=== PATIENT | female | born 1975 | race Caucasian/White ===

== ENCOUNTER → 2018-03-20 | Outpatient (REF) | payer OTHER ==
[2018-03-20 18:28] LABS: TOTAL PROTEIN,RANDOM URINE 23.4 MG/DL (0.0-12.0); URINE TOTAL PROTEIN 23.4 MG/DL (0-12)
[2018-03-20 18:36] LABS: TOTAL PROTEIN 6.8 GM/DL (6.4-8.2)
[2018-03-21 12:01] LABS: ALBUMIN 3.86 GM/DL (3.29-5.55); ALBUMIN % 56.7 % (55.8-66.1); ALPHA-1-GLOBULIN % 5.5 % (2.9-4.9); ALPHA-1-GLOBULINS 0.37 GM/DL (0.17-0.41); ALPHA-2-GLOBULINS 0.92 GM/DL (0.42-0.99); ALPHA-2-GLOBULINS % 13.6 % (7.1-11.8); BETA-1-GLOBULINS 0.47 GM/DL (0.28-0.60); BETA-1-GLOBULINS % 6.9 % (4.7-7.2); BETA-2-GLOBULINS 0.38 GM/DL (0.19-0.55); BETA-2-GLOBULINS % 5.6 % (3.2-6.5); GAMMA GLOBULIN % 11.7 % (11.1-18.8)
[2018-03-21 14:20] LABS: UPEP INTERPRETATION NO M-SPIKE NOTED; URINE VOLUME RANDOM ML
[2018-03-23 00:08] LABS: TISSUE TRANSGLUTAMINASE IgA <2 U/mL (0-3)
[2018-03-23 00:08] LABS: ENDOMYSIAL ABY IgA Negative (Negative); FREE LAMBDA LIGHT CHAINS SERUM 9.6 mg/L (5.7-26.3); KAPPA/LAMBDA RATIO SERUM 1.56 (0.26-1.65)
== END ==
LOC: M LAB REF 16:41
DX: D50.9 Iron deficiency anemia, unspecified (principal); D47.3 Essential (hemorrhagic) thrombocythemia
CPT/HCPCS: 84165

== ENCOUNTER 2018-06-21 11:17 | Day surgery (SDC) | payer OTHER ==
[2018-06-21] MEDS: NS 1,000 ML IV (13:02)
[2018-06-21] MEDS ORDERED: fentaNYL 100 MCG/2 ML INJECTION (J3010) As Ordered (13:44)
[2018-06-21] MEDS ORDERED: PROPOFOL 200 MG/20 ML VIAL As Ordered ×4 (14:03→14:38)
[2018-06-21] MEDS ORDERED: LIDOCAINE 2% INJ 100 MG/5 ML SDV (FOR ANES.) As Ordered (14:03)
== END 2018-06-21 15:25 | disposition home or self-care (01) ==
LOC: M OPP 11:17
DX: K64.8 Other hemorrhoids (principal); D12.2 Benign neoplasm of ascending colon; K31.7 Polyp of stomach and duodenum; K29.70 Gastritis, unspecified, without bleeding; K21.9 Gastro-esophageal reflux disease without esophagitis; M79.7 Fibromyalgia; F32.9 Major depressive disorder, single episode, unspecified; G43.909 Migraine, unspecified, not intractable, without status migrainosus; M47.9 Spondylosis, unspecified; Z79.899 Other long term (current) drug therapy; Z91.048 Other nonmedicinal substance allergy status; Z97.8 Presence of other specified devices
CPT/HCPCS: 45385

== ENCOUNTER 2019-10-17 06:42 | Day surgery (SDC) | payer OTHER ==
[~2019-10-17] VITALS: Ht 162.6 cm; Wt 91.2 kg
[~2019-10-17 06:42] MED LIST: AMIT10TA PO; BUPR150T3 PO; CALC600T7 PO; DEPO150I IM; DULO1CAP5 PO; DULO1CAP6 PO; FISH1000 PO; GABA600T4 PO; LORA-243 PO; OMEP1CAP73 PO; SUMA50TA2 PO; TIZA4CAP PO; VITA-122 PO; VITAD1000T PO; ZONI100C17 PO
[2019-10-17] MEDS ORDERED: SIMETHICONE 40MG/0.6ML DROPS 30ML As Ordered ONE (06:58)
[2019-10-17] MEDS ORDERED: LIDOCAINE 2% INJ 100 MG/5 ML SDV (FOR ANES.) As Ordered ONE (07:02)
[2019-10-17] MEDS ORDERED: propofoL 200 MG/20 ML VIAL As Ordered ONE ×2 (07:02→07:03)
--- NOTE | 2019-10-17 08:06 | ROOR ---
Patient Name: Gabi Moreno Procedure Date: 10/17/2019 7:31 AM Date of : 1975 Age: 44 Room: [facility], [facility]IN [facility] Gender: Female Note Status: Finalized Procedure: Colonoscopy Indications: High risk colon cancer surveillance: Personal history of sessile serrated colon polyp (10 mm or greater in size) Providers: Michael Wilburn MD Referring MD: TRACEY BABB MD Requesting Provider: Medicines: Monitored Anesthesia Care Complications: No immediate complications. Procedure: Pre-Anesthesia Assessment: - Prior to the procedure, a History and Physical was performed, and patient medications and allergies were reviewed. The patient is competent. The risks and benefits of the procedure and the sedation options and risks were discussed with the patient. All questions were answered and informed consent was obtained. Patient identification and proposed procedure were verified by the physician, the nurse and the anesthesiologist in the procedure room. Mental Status Examination: alert and oriented. Airway Examination: normal oropharyngeal airway and neck mobility. Respiratory Examination: clear to auscultation. CV Examination: normal. Prophylactic Antibiotics: The patient does not require prophylactic antibiotics. Prior Anticoagulants: The patient has taken no previous anticoagulant or antiplatelet agents. ASA Grade Assessment: II - A patient with mild systemic disease. After reviewing the risks and benefits, the patient was deemed in satisfactory condition to undergo the procedure. The anesthesia plan was to use monitored anesthesia care (MAC). Immediately prior to administration of medications, the patient was re-assessed for adequacy to receive sedatives. The heart rate, respiratory rate, oxygen saturations, blood pressure, adequacy of pulmonary ventilation, and response to care were monitored throughout the procedure. The physical status of the patient was re-assessed after the procedure. The Colonoscope was introduced through the anus and advanced to the terminal ileum, with identification of the appendiceal orifice and IC valve. The colonoscopy was performed without difficulty. The patient tolerated the procedure well. The quality of the bowel preparation was good. The terminal ileum, ileocecal valve, appendiceal orifice, and rectum were photographed. Scope insertion time was 3 minutes. Scope withdrawal time was 9 minutes. The total duration of the procedure was 15 minutes. Findings: The perianal and digital rectal examinations were normal. The terminal ileum appeared normal. A 12 mm polyp was found in the ascending colon. The polyp was sessile. The polyp was removed with a hot snare. Resection and retrieval were complete. Verification of patient identification for the specimen was done by the physician and nurse using the patient's name, date and medical record number. Estimated blood loss was minimal. Multiple small and large-mouthed diverticula were found from sigmoid to descending colon. There was no evidence of diverticular bleeding. Non-bleeding external and internal hemorrhoids were found during retroflexion. The hemorrhoids were medium-sized. Impression: - The examined portion of the ileum was normal. - One 12 mm polyp in the ascending colon, removed with a hot snare. Resected and retrieved. - Moderate diverticulosis from sigmoid to descending colon. There was no evidence of diverticular bleeding. - Non-bleeding external and internal hemorrhoids. Recommendation: - Patient has a contact number available for emergencies. The signs and symptoms of potential delayed complications were discussed with the patient. Return to normal activities tomorrow. Written discharge instructions were provided to the patient. - Clear liquid diet for 1 day, then advance as tolerated to high fiber diet. - Continue present medications. - Miralax 1 capful (17 grams) in 8 ounces of water PO PRN. - Await pathology results. - Repeat colonoscopy in 3 - 5 years for surveillance based on pathology results. - Telephone GI clinic for pathology results in 2 weeks. - Return to primary care physician. Michael Wilburn MD Michael Wilburn MD 10/17/2019 8:06:50 AM Electronically signed by Micahel Wilburn MD Number of Addenda: 0 Note Initiated On: 10/17/2019 7:31 AM Estimated Blood Loss: Estimated blood loss was minimal.
[2019-10-17 08:20] VITALS: BP 121/72
[2019-10-17] MEDS ORDERED: NS 1,000 ML IV ONE (08:30)
== END 2019-10-17 08:33 | disposition home or self-care (01) ==
LOC: M OPP 06:42
PROVIDERS: ATTEND Internal Medicine Gastroenterology
DX: Z86.010 Personal history of colon polyps (principal); K57.30 Diverticulosis of large intestine without perforation or abscess without bleeding; D12.2 Benign neoplasm of ascending colon; K64.8 Other hemorrhoids; M79.7 Fibromyalgia; Z79.899 Other long term (current) drug therapy; Z91.048 Other nonmedicinal substance allergy status

== ENCOUNTER → 2022-06-16 | Outpatient (REF) | payer OTHER ==
[~2022-06-16] MED LIST changes: -AMIT10TA PO; +AMIT10TA7 PO; +BUPR150T12 PO; -BUPR150T3 PO; +CALC-212 PO; -CALC600T7 PO; +VITA100093 PO; -VITAD1000T PO; -ZONI100C17 PO; +ZONI100C67 PO
== END ==
LOC: M LAB REF 14:14
PROVIDERS: ATTEND Physician Assistant Medical
DX: R19.4 Change in bowel habit (principal)

== ENCOUNTER → 2022-06-25 | Outpatient (CLI) | payer OTHER ==
[~2022-06-25] MED LIST changes: +AIMO70IN2 SQ; +DICY10CA13 PO
== END ==
LOC: M LABSMTC 10:44
PROVIDERS: ATTEND Anesthesiology
DX: Z01.812 Encounter for preprocedural laboratory examination (principal); Z20.822 Contact with and (suspected) exposure to COVID-19

== ENCOUNTER 2022-06-27 10:43 | Day surgery (SDC) | payer OTHER ==
[~2022-06-27] VITALS: Ht 162.6 cm; Wt 86.1 kg
[~2022-06-27 10:43] MED LIST changes: +NS 1,000 ML IV ONE
[2022-06-27] MEDS ORDERED: propofoL 200 MG/20 ML VIAL As Ordered ONE (13:33)
[2022-06-27] MEDS ORDERED: LIDOCAINE 2% 100MG/5ML SDV (FOR ANES.) As Ordered ONE (13:33)
[2022-06-27 14:35] VITALS: BP 115/63
== END 2022-06-27 14:49 | disposition home or self-care (01) ==
LOC: M OPP 10:43
PROVIDERS: ATTEND Internal Medicine Gastroenterology
DX: Z12.11 Encounter for screening for malignant neoplasm of colon (principal); Z86.010 Personal history of colon polyps; K57.30 Diverticulosis of large intestine without perforation or abscess without bleeding; K64.4 Residual hemorrhoidal skin tags; K64.8 Other hemorrhoids; K44.9 Diaphragmatic hernia without obstruction or gangrene; K29.70 Gastritis, unspecified, without bleeding; K21.00 Gastro-esophageal reflux disease with esophagitis, without bleeding; R10.13 Epigastric pain; Z79.899 Other long term (current) drug therapy; Z79.3 Long term (current) use of hormonal contraceptives; M79.7 Fibromyalgia; F32.9 Major depressive disorder, single episode, unspecified; G43.909 Migraine, unspecified, not intractable, without status migrainosus; Z91.048 Other nonmedicinal substance allergy status; D64.9 Anemia, unspecified; M19.90 Unspecified osteoarthritis, unspecified site; Z80.7 Family history of other malignant neoplasms of lymphoid, hematopoietic and related tissues